=== PATIENT | female | born 1995 | race African-American/Black ===

== ENCOUNTER 2020-09-14 15:01 | Emergency (ER) | payer OTHER, SELFPAY ==
[2020-09-14 15:20] VITALS: BP 107/66; PULSE 76; RESP 16; TEMP 36.9; O2SAT 99
--- NOTE | 2020-09-14 15:34 | ED.GENADULT ---
HPI - General Adult General Chief complaint: Unspecified Stated complaint: Test Source: patient and RN notes reviewed Limitations: no limitations History of Present Illness HPI narrative: The patient non-smoker/nondrinker, presents with nausea and request for recheck. Patient states she is LMP approximately 23 July. She now has almost daily nonbilious emesis; no diarrhea, fever, CP, cough, loss of taste or smell, S OB, rash, frequency/dysuria. Symptoms are mild, worse mostly in the morning when eating Related Data Allergies Allergy/AdvReac Type Severity Reaction Status Date / Time No Known Allergies Allergy Verified 09/14/20 15:30 Review of Systems Review of Systems: Narrative: General/Constitutional: No weight loss,fever Eyes: N0: Redness,discharge Ears/Nose/Throat: No: Epistaxis,ear discharge Respiratory: Denies: Hemoptysis Gastrointestinal: ++ Vomiting, no Bleeding-rectal Skin: No Lumps, eruption Neurologic: No Focal Weakness,Sz Hematologic: Denies: Petechiae/Purpura Psychiatric: No: Suicida ideationl All Other Systems: Reviewed and Negative PMFSH Comments At time of signature, agree with nursing past medical, surgical, social and family history. There is no relevant family history pertinent to the presenting complaint Exam Narrative: Exam Narrative: General Appearance: Well appearing, No distress EYE: PERRLA, Conjunctiva clear Ears: External ear normal Nose: Normal nose Mouth/Throat: Normal appearing, Normal lips Neck: Supple Respiratory: Airway patent, No respiratory distress Abdomen: Soft, Non-tender, No massess, Musculoskeletal: Full ROM Skin: Warm, Dry Neurological: A&O x3, CN II-X intact Psychiatric: Normal mood, Normal affect Course Vital Signs Vital signs: Vital Signs Temperature 98.4 F 09/14/20 15:20 Pulse Rate 76 09/14/20 15:20 Respiratory Rate 16 09/14/20 15:20 Blood Pressure 107/66 09/14/20 15:20 Pulse Oximetry 99 09/14/20 15:20 Temperature 98.4 F 09/14/20 15:46 Pulse Rate 76 09/14/20 15:46 Respiratory Rate 16 09/14/20 15:46 Blood Pressure 107/66 09/14/20 15:46 Pulse Oximetry 99 09/14/20 15:46 Medical Decision Making Vital Signs Vital Signs: Vital Signs Temperature 98.4 F 09/14/20 15:20 Pulse Rate 76 09/14/20 15:20 Respiratory Rate 16 09/14/20 15:20 Blood Pressure 107/66 09/14/20 15:20 Pulse Oximetry 99 09/14/20 15:20 Temperature 98.4 F 09/14/20 15:46 Pulse Rate 76 09/14/20 15:46 Respiratory Rate 16 09/14/20 15:46 Blood Pressure 107/66 09/14/20 15:46 Pulse Oximetry 99 09/14/20 15:46 Lab Data Labs: UCG Bedside Result Positive Reference Range: Negative UCG Bedside Result Positive Reference Range: Negative Discharge Plan Discharge Clinical Impression: Antepartum complication of Nausea & vomiting Qualifiers: Vomiting type: unspecified Vomiting Intractability: non-intractable Qualified Code(s): R11.2 - Nausea with vomiting, unspecified Patient Disposition: Home, Self-Care Condition: Stable Instructions: First Trimester (ED) Prescriptions: New promethazine 25 mg tablet 25 mg PO TID PRN (Reason: nausea and vomiting) Qty: 20 RF: 2 prenat.vits,quentin,[id number] Tablet 1 tablet PO DAILY Qty: 30 RF: 0 Follow-up/Referrals: UNKNOWN,DOCTOR [Primary Care Provider] -
[2020-09-14 15:46] VITALS: BP 107/66; PULSE 76; RESP 16; TEMP 36.9; O2SAT 99
== END 2020-09-14 15:46 | disposition home or self-care (01) ==
PROVIDERS: Emergency Provider Emergency Medicine
DX: O21.9 Vomiting of pregnancy, unspecified (principal); Z3A.00 Weeks of gestation of pregnancy not specified
CPT/HCPCS: 81025; 99203; G0463